=== PATIENT | female | born 1980 | race Two or more races ===

== ENCOUNTER 2023-01-10 10:37 | Emergency (ER) | payer MEDICAID ==
[~2023-01-10] VITALS: Ht 157.5 cm; Wt 72.7 kg
[2023-01-10 10:41] VITALS: BP 104/69; PULSE 74; RESP 16; TEMP 99.4
[2023-01-10] MEDS ORDERED: ACET-2247 PO (10:43)
[2023-01-10 11:39] LABS: INFLUENZA TYPE A NEGATIVE FOR TYPE A (NEGATIVE); INFLUENZA TYPE B NEGATIVE FOR TYPE B (NEGATIVE)
[2023-01-10 11:52] LABS: RAPID GROUP A STREP NEGATIVE (NEGATIVE)
[2023-01-10] MEDS ORDERED: AMOX250C4 PO (12:21)
== END 2023-01-10 12:42 | disposition home or self-care (01) ==
LOC: EMS 10:46
DX: H66.92 Otitis media, unspecified, left ear (principal)
CPT/HCPCS: 87430; 87804; 99283

== ENCOUNTER 2023-06-21 09:42 | Emergency (ER) | payer MEDICAID ==
[~2023-06-21] VITALS: Ht 154.9 cm; Wt 70.5 kg
[~2023-06-21 09:42] MED LIST: ACET-2247 PO; AMOX250C4 PO
[2023-06-21 09:50] VITALS: TEMP 98.6
[2023-06-21 10:40] LABS: INFLUENZA A-RTPCR,COMBO NEGATIVE (NEGATIVE); INFLUENZA B-RTPCR,COMBO NEGATIVE (NEGATIVE); RESPIRATORY SYNCYTIAL VRS-PCR NEGATIVE (NEGATIVE); SARS COVID19 RTPCR, COMBO NEGATIVE (NEGATIVE)
[2023-06-21] MEDS ORDERED: AMOX500C2 PO (11:45)
[2023-06-21 11:50] VITALS: BP 120/84; PULSE 79; RESP 16
== END 2023-06-21 14:14 | disposition home or self-care (01) ==
LOC: EMS 09:42
DX: J01.90 Acute sinusitis, unspecified (principal); Z20.822 Contact with and (suspected) exposure to COVID-19
CPT/HCPCS: 99284; 0241U; 71045; 87430